=== PATIENT | female | born 1995 | race African-American/Black ===

== ENCOUNTER 2017-02-10 11:01 | Emergency (ER) | payer OTHER ==
[~2017-02-10] VITALS: Ht 165.1 cm; Wt 70.9 kg
[2017-02-10 11:02] VITALS: BP 134/65
[2017-02-10 12:16] LABS: BASO # 0.1 10^3/uL (0.0-0.2); BASO % 0.5 % (0.0-1.0); EOS # 0.1 10^3/uL (0.0-0.50); EOS % 1.4 % (0.0-3.0); IMMATURE GRANULOCYTE % 0.3 % (0-0); LYMPH # 1.9 10^3/uL (1.5-6.5); LYMPH % 19.5 % (24.0-44.0); MEAN CORPUSCULAR HEMOGLOBIN 27.5 pg (27.0-33.0); MEAN CORPUSCULAR HGB CONC 31.2 g/dl (32.0-36.5); MONO # 0.6 10^3/uL (0.0-0.8); MONO % 6.1 % (0.0-5.0); NEUTROPHILS # 7.1 10^3/uL (1.8-7.7); NEUTROPHILS % 72.2 % (36.0-66.0); PLATELET COUNT, AUTOMATED 316 10^3/uL (150-450); WHITE BLOOD COUNT 9.9 10^3/uL (4.0-10.0)
[2017-02-10 12:23] LABS: CONTROL LINE UCG INT CTR LINE PRESENT
--- NOTE | 2017-02-10 12:34 | REP ---
Abdominal right upper quadrant ultrasound: There is a negative Rodriguez's sign to transducer pressure. The gallbladder is contracted at the time of the scan. No definite cholelithiasis is identified. There is no gallbladder wall thickening or pericholecystic fluid. There is no intrahepatic or extrahepatic biliary duct dilatation, the common duct measures 4.9 mm in diameter. The hepatic parenchyma is homogeneous and unremarkable. The pancreas is obscured by bowel gas. There is no right renal hydronephrosis, calculus, mass or cyst. The right kidney is normal size measuring 11.8 cm in craniocaudad length. Impression: The gallbladder is contracted. No definite evidence of cholelithiasis or biliary duct dilatation. No gallbladder wall thickening or pericholecystic fluid to suggest acute cholecystitis. The pancreas is obscured by bowel gas. Signed by Goldy Patterson MD 02/10/2017 12:26 P
[2017-02-10 12:41] LABS: ALBUMIN/GLOBULIN RATIO 0.91 (1.00-1.93); ALKALINE PHOSPHATASE 100 U/L (45-117); ALT/SGPT 30 U/L (12-78); AMYLASE 61 U/L (25-115); ANION GAP 6 MEQ/L (8-16); AST/SGOT 21 U/L (15-37); BILIRUBIN,DIRECT < 0.1 MG/DL (0.0-0.2); BILIRUBIN,TOTAL 0.3 MG/DL (0.2-1.0); BLOOD UREA NITROGEN 16 MG/DL (7-18); CALCIUM LEVEL 9.2 MG/DL (8.5-10.1); CARBON DIOXIDE LEVEL 27 MEQ/L (21-32); CHLORIDE LEVEL 108 MEQ/L (98-107); GLUCOSE, FASTING 64 MG/DL (70-105); POTASSIUM SERUM 3.5 MEQ/L (3.5-5.1); SODIUM LEVEL 141 MEQ/L (136-145); TOTAL PROTEIN 8.4 GM/DL (6.4-8.2)
[2017-02-10] MEDS ORDERED: ZOFR4TAB3 PO (12:48)
== END 2017-02-10 13:08 | disposition home or self-care (01) ==
LOC: M ED 11:01
DX: R10.10 Upper abdominal pain, unspecified (principal); R11.2 Nausea with vomiting, unspecified; Z72.0 Tobacco use

== ENCOUNTER 2017-04-13 16:55 | Emergency (ER) | payer OTHER ==
[~2017-04-13] VITALS: Ht 160 cm; Wt 70.5 kg
[~2017-04-13 16:55] MED LIST: ZOFR4TAB3 PO
[2017-04-13] MEDS ORDERED: cefTRIAXone SOD 250 MG VIAL (J0696) IM ONE (19:00)
[2017-04-13] MEDS ORDERED: AZITHROMYCIN 250 MG TAB PO ONE (19:00)
[2017-04-13 20:53] VITALS: BP 124/67
[2017-04-13 21:08] LABS: CONTROL LINE INT CTR LINE PRESENT; HIV SCRN NEGATIVE (NEGATIVE); HIV SCRN1 NEGATIVE (NEGATIVE)
[2017-04-14 10:59] LABS: HEPATITIS B SURFACE ANTIBODY POSITIVE (POSITIVE)
== END 2017-04-13 20:55 | disposition home or self-care (01) ==
LOC: M ED 16:55
DX: Z20.2 Contact with and (suspected) exposure to infections with a predominantly sexual mode of transmission (principal)
CPT/HCPCS: 81025; 86706; 86780; 86803; 87210; 87340; 87491; 87591; 87806; 96372; 99284; J0696

== ENCOUNTER 2017-12-13 11:30 | Emergency (ER) | payer OTHER ==
[2017-12-13 12:58] LABS: BASO % 0.2 % (0.0-1.0); EOS # 0.2 10^3/uL (0.0-0.50); EOS % 1.1 % (0.0-3.0); HEMATOCRIT 39.4 % (36.0-47.0); HEMOGLOBIN 12.7 g/dl (12.0-15.5); IMMATURE GRANULOCYTE % 0.4 % (0-3.0); LYMPH # 1.4 10^3/uL (1.5-6.5); LYMPH % 9.8 % (24.0-44.0); MEAN CORPUSCULAR HEMOGLOBIN 28.7 pg (27.0-33.0); MEAN CORPUSCULAR HGB CONC 32.2 g/dl (32.0-36.5); MEAN CORPUSCULAR VOLUME 88.9 fl (80.0-96.0); MONO # 0.7 10^3/uL (0.0-0.8); MONO % 5.2 % (0.0-5.0); NEUTROPHILS # 11.6 10^3/uL (1.8-7.7); NEUTROPHILS % 83.3 % (36.0-66.0); PLATELET COUNT, AUTOMATED 306 10^3/uL (150-450); RED BLOOD COUNT 4.43 10^6/uL (4.00-5.40); RED CELL DISTRIBUTION WIDTH 12.5 % (11.5-14.5); WHITE BLOOD COUNT 13.9 10^3/uL (4.0-10.0)
[2017-12-13 13:08] LABS: KETONE, URINE AUTO RFX NEGATIVE (NEGATIVE); MUCUS, URINE RFX SMALL (NEGATIVE); NITRITE, URINE AUTO RFX NEGATIVE (NEGATIVE); RBC, URINE AUTO RFX 0 /HPF (0-3); SPECIFIC GRAVITY UR AUTO RFX 1.018 (1.002-1.035); SQUAM EPITHELIAL CELL UR AURFX 3 /HPF (0-6)
[2017-12-13 13:30] LABS: HCG, SERUM QUANTITATIVE 70697 MIU/ML
[2017-12-13 13:52] LABS: LEUKOCYTE ESTERASE UR AUTO RFX 3+ (NEGATIVE); WBC, URINE AUTO RFX TNTC /HPF (0-3)
[2017-12-13] MEDS: NITROFURANTOIN (MACROBID) 100 MG CAP PO (14:32)
[2017-12-13 14:45] LABS: CHLAMYDIA DNA AMPLIFICATION POSITIVE (NEGATIVE); GC DNA AMPLIFICATION NEGATIVE (NEGATIVE)
== END 2017-12-13 14:33 | disposition home or self-care (01) ==
LOC: M ED 11:30
DX: O23.41 Unspecified infection of urinary tract in pregnancy, first trimester (principal); O23.591 Infection of other part of genital tract in pregnancy, first trimester; Z3A.01 Less than 8 weeks gestation of pregnancy; O99.331 Smoking (tobacco) complicating pregnancy, first trimester; F17.210 Nicotine dependence, cigarettes, uncomplicated
CPT/HCPCS: 76801

== ENCOUNTER 2018-01-11 22:39 | Emergency (ER) | payer OTHER ==
[2018-01-12 00:21] LABS: KETONE, URINE AUTO RFX NEGATIVE (NEGATIVE); LEUKOCYTE ESTERASE UR AUTO RFX NEGATIVE (NEGATIVE); MUCUS, URINE RFX SMALL (NEGATIVE); NITRITE, URINE AUTO RFX NEGATIVE (NEGATIVE); RBC, URINE AUTO RFX 2 /HPF (0-3); SPECIFIC GRAVITY UR AUTO RFX 1.008 (1.002-1.035); SQUAM EPITHELIAL CELL UR AURFX 0 /HPF (0-6); WBC, URINE AUTO RFX 2 /HPF (0-3)
== END 2018-01-12 00:47 | disposition home or self-care (01) ==
LOC: M ED 22:39
DX: O26.891 Other specified pregnancy related conditions, first trimester (principal); R10.2 Pelvic and perineal pain
CPT/HCPCS: 76801

== ENCOUNTER 2018-07-27 02:25 | Inpatient (IN) | payer OTHER ==
[2018-07-27] VITALS (29 sets, daily range): BP systolic 103–150; BP diastolic 55–82
[~2018-07-27] VITALS: Ht 157.5 cm; Wt 75.5 kg
[~2018-07-27 02:25] MED LIST changes: +MACR100C43 PO; +METR0.7533 TOP; +RIGHTAB2; +ZOFR4TAB14 PO; -ZOFR4TAB3 PO
[2018-07-27] MEDS ORDERED: LACTATED RINGER'S 1000 ML IV STA (06:15)
--- NOTE | 2018-07-27 06:30 | HPEPDOC ---
Obstetrical History & Physical General Date of Admission Jul 27, 2018 at 06:15 History of Present Illness 22 yo at 39+0 weeks gestation by 6+5 week US on [id number] presents to L&D w ith regular, painful contractions. She denies any leakage of fluid or bleeding. She endorses movement. is uncomplicated other than a gap in care from 28 to 36 weeks. 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 ABDOMEN: Gravid and non-tender to touch. FETUS: Is vertex (VTX) by sterile vaginal examination (SVE) EXTREMITIES: No edema. Vital Signs/I&O Vital Signs Date Time Temp Pulse Resp B/P (MAP) Pulse Ox O2 Delivery O2 Flow Rate FiO2 07/27/18 04:26 82 18 124/65 (84) 07/27/18 02:49 98.0 Laboratory Data [facility] Laboratory Tests 2 07/27/18 06:21: Serology Scanned Report Hepatitis B Testing Pertinent Laboratoy Data Blood Type: O+ RBC Antibody Screen: Negative HIV: Negative Hepatitis B: Negative Hepatitis C: Unknown Rapid Plasma Reagin: Nonreactive Rubella: Immune Varicella: Immune Chlamydia/Gonorrhea: Negative Group B Streptococcus: Negative Quad Screen Test: Unknown Cystic Fibrosis: Unknown Anatomy Ultrasound Placenta Location: Posterior Normal Anatomy: Yes Placenta Previa: No Vaginal Examination Dilation: 4 cm Effacement: 90% Station: -1, 0 Cervical Consistency: Soft Cervical Position: Middle Presentation: Cephalic presentation Position: Vertex (occiput) Assessment Heart Rate (FHR): 120 Variability: Moderate Accelerations: Positive Decelerations: None Tocometer Contractions: Yes Frequency: regular Duration: greater than 60 seconds Strength: palpated as moderate Assessment/Plan Assessment 22 yo at 39+0 weeks presented to L&D in labor. Plan Admit for expectant management of labor. Will augment as clinically indicated. Apply IV fluids. GBS negative. Clear liquid diet. Epidural as desired. Anticipate . Unable to find result of 1hr GTT in chart though report is that she passed screening. DO JESUS Davis CHRISTOPHER J. DO Jul 27, 2018 06:30
[2018-07-27 06:47] LABS: BASO % 0.2 % (0.0-1.0); EOS % 0.2 % (0.0-3.0); HEMATOCRIT 33.8 % (36.0-47.0); HEMOGLOBIN 10.7 g/dl (12.0-15.5); LYMPH # 1.2 10^3/uL (1.5-6.5); LYMPH % 8.2 % (24.0-44.0); MEAN CORPUSCULAR HEMOGLOBIN 26.6 pg (27.0-33.0); MEAN CORPUSCULAR HGB CONC 31.7 g/dl (32.0-36.5); MEAN CORPUSCULAR VOLUME 83.9 fl (80.0-96.0); MONO # 0.7 10^3/uL (0.0-0.8); MONO % 5.1 % (0.0-5.0); NEUTROPHILS # 12.1 10^3/uL (1.8-7.7); NEUTROPHILS % 85.8 % (36.0-66.0); PLATELET COUNT, AUTOMATED 192 10^3/uL (150-450); RED BLOOD COUNT 4.03 10^6/uL (4.00-5.40); WHITE BLOOD COUNT 14.2 10^3/uL (4.0-10.0)
--- NOTE | 2018-07-27 10:23 | IPNPDOC ---
Text Note Date of Service The patient was seen on 07/27/18. NOTE Cat 1 NST Cx /-/ BOW OK for epidural Sessions VS,Sue, I+O VS, Sue I+O Laboratory Tests 07/27/18 06:33 Red Blood Count 4.03, Mean Corpuscular Volume 83.9, Mean Corpuscular Hemoglobin 26.6 L, Mean Corpuscular Hemoglobin Concent 31.7 L, Red Cell Distribution Width 13.5, Neutrophils (%) (Auto) 85.8 H, Lymphocytes (%) (Auto) 8.2 L, Monocytes (%) (Auto) 5.1 H, Eosinophils (%) (Auto) 0.2, Basophils (%) (Auto) 0.2, Neutrophils # (Auto) 12.1 H, Lymphocytes # (Auto) 1.2 L, Monocytes # (Auto) 0.7, Eosinophils # (Auto) 0.0, Basophils # (Auto) 0.0 Vital Signs Date Time Temp Pulse Resp B/P (MAP) Pulse Ox O2 Delivery O2 Flow Rate FiO2 07/27/18 05:55 98.5 67 18 116/66 (83) SESSIONS,TYLER Sanchez MD Jul 27, 2018 10:22
[2018-07-27] MEDS: FENTANYL/ROPIVACAINE/NACL BAG 100 ML EPIDURAL SCH ×2 (10:26→11:34)
[2018-07-27] MEDS ORDERED: FENTANYL 2MCG/ML ROPIVACAINE 0.2% IN 0.9% NACL 100ML IVBAG As Ordered ONE (10:32)
[2018-07-27] MEDS ORDERED: ONDANSETRON 4MG/2ML VIAL (J2405) IV PRN (12:15)
[2018-07-27] MEDS ORDERED: ePHEDrine SULFATE 25 MG/5 ML(5MG/ML) SYRINGE IV PRN (12:15)
[2018-07-27] MEDS ORDERED: REFRIGERATOR IV KEYS XX PRN (12:15)
[2018-07-27] MEDS ORDERED: EPIDURAL/PCA KEYS XX PRN (12:15)
[2018-07-27] MEDS ORDERED: NALOXONE INJ 0.4 MG/1 ML VIAL (J2310) IV PRN (12:15)
[2018-07-27] MEDS ORDERED: EPIDURAL COMMENT XX SCH (12:15)
[2018-07-27] MEDS ORDERED: diphenhydrAMINE INJ 50MG/ML VIAL (J1200) IV PRN (12:15)
[2018-07-27] MEDS ORDERED: LACTATED RINGER'S 1000 ML IV PRN (12:15)
[2018-07-27] MEDS ORDERED: LR 1,000 ML IV ONE (12:30)
--- NOTE | 2018-07-27 13:01 | IPNPDOC ---
Text Note Date of Service The patient was seen on 07/27/18. NOTE NST Cat 1 Feeling well s/p epidural Cx 6/100/0/AROM with clr blood tinged fluid Recheck in 2-3 hrs, sooner prn Sessions VS,Sue, I+O VSSue I+O Laboratory Tests 07/27/18 06:33 Red Blood Count 4.03, Mean Corpuscular Volume 83.9, Mean Corpuscular Hemoglobin 26.6 L, Mean Corpuscular Hemoglobin Concent 31.7 L, Red Cell Distribution Width 13.5, Neutrophils (%) (Auto) 85.8 H, Lymphocytes (%) (Auto) 8.2 L, Monocytes (%) (Auto) 5.1 H, Eosinophils (%) (Auto) 0.2, Basophils (%) (Auto) 0.2, Neutrophils # (Auto) 12.1 H, Lymphocytes # (Auto) 1.2 L, Monocytes # (Auto) 0.7, Eosinophils # (Auto) 0.0, Basophils # (Auto) 0.0 Vital Signs Date Time Temp Pulse Resp B/P (MAP) Pulse Ox O2 Delivery O2 Flow Rate FiO2 07/27/18 11:13 97.8 07/27/18 10:25 69 18 115/60 (78) SESSIONS,TYLER Sanchez MD Jul 27, 2018 13:01
[2018-07-27] MEDS: LR 1,000 ML IV SCH ×2 (13:04→14:15)
--- NOTE | 2018-07-27 15:54 | IPNPDOC ---
Text Note Date of Service The patient was seen on 07/27/18. NOTE FHT Cat 1 Cx 8/100/0 Doing well Recheck in 2 hrs, sooner prn Sessions VS,Sue, I+O VSSue I+O Laboratory Tests 07/27/18 06:33 Red Blood Count 4.03, Mean Corpuscular Volume 83.9, Mean Corpuscular Hemoglobin 26.6 L, Mean Corpuscular Hemoglobin Concent 31.7 L, Red Cell Distribution Width 13.5, Neutrophils (%) (Auto) 85.8 H, Lymphocytes (%) (Auto) 8.2 L, Monocytes (%) (Auto) 5.1 H, Eosinophils (%) (Auto) 0.2, Basophils (%) (Auto) 0.2, Neutrophils # (Auto) 12.1 H, Lymphocytes # (Auto) 1.2 L, Monocytes # (Auto) 0.7, Eosinophils # (Auto) 0.0, Basophils # (Auto) 0.0 Vital Signs Date Time Temp Pulse Resp B/P (MAP) Pulse Ox O2 Delivery O2 Flow Rate FiO2 07/27/18 14:31 94 16 150/71 (97) 07/27/18 11:13 97.8 SESSIONS,TYLER Sanchez MD Jul 27, 2018 15:54
[2018-07-27] MEDS ORDERED: OXYTOCIN 30 UNITS IN 0.9% NaCl 500ML IV BAG (J2590) As Ordered ONE (17:43)
[2018-07-27] MEDS ORDERED: MEASLES,MUMPS,RUBELLA VACCINE INJ (MMR-II) (90707) SC SCH (19:45)
[2018-07-27] MEDS ORDERED: IBUPROFEN 800 MG TAB PO PRN (19:45)
[2018-07-27] MEDS ORDERED: DIBUCAINE 1% OINTMENT 30GM TOP PRN (19:45)
[2018-07-27] MEDS ORDERED: DOCUSATE SODIUM 100 MG CAP PO PRN (19:45)
[2018-07-27] MEDS ORDERED: RHOGAM 300 MCG (1500 IU) INJ (J2790) IM SCH (19:45)
[2018-07-27] MEDS: ACETAMINOPHEN 500 MG TAB PO PRN (19:51)
[2018-07-27] MEDS ORDERED: OXYTOCIN DRIP 30 UNITS in APPROPRIATE DILUENT 1 EA IV SCH (20:00)
--- NOTE | 2018-07-27 20:24 | DNPDOC ---
[facility] Delivery Note Delivery Note DATE OF DELIVERY: [id number] PREDELIVERY DIAGNOSIS: 39 0/7 weeks' gestation and labor. POST DELIVERY DIAGNOSIS: Delivered. PROCEDURE: Spontaneous vaginal delivery SPECIAL TAX AUDITOR: Dr. Mayer ANESTHESIA: epidural ESTIMATED BLOOD LOSS: 300 mL. FINDINGS: 5 pound 14 ounce male , Score 8/9, nuchal cord times 1, loose DELIVERY SUMMARY: Called to room after pushing well after found to be C/C/+2. Great effort. No delay of the vtx, came out RACQUEL, rest'd to ROT, compound post left arm. No delay of either shoulder, to abdomen. Vigorous. Cord C/C by mot her. Cord blood. Placenta intact. Pit going 999, fundus firm. 3 small vag wall lacs repaired with 3-0 vicryl figure of eights. Per and Cx intact. Sonia MAYER,TYLER Sanchez MD Jul 27, 2018 20:24
[2018-07-28 05:42] VITALS: BP 95/52
--- NOTE | 2018-07-28 07:22 | IPNPDOC ---
Text Note Date of Service The patient was seen on 07/28/18. NOTE PPD 1 SUBJECT: Wendi is a 22yo [id number] s/p uncomplicated on 07/27/18, doing well day #1. She has been ambulating without lightheadedness, voiding spontaneously without issue. Tolerating regular diet without n/v. Breast feeding without issue. Reports lochia is minimal. Pain is minimal. She denies f/c/cp/sob. OBJECTIVE: VITAL SIGNS: Within normal limits, afebrile. Alert and oriented times three. Abdomen: Fundus firm at U-2. Soft, NTTP Extremities: no pain with palpation of calves ASSESSMENT: Wendi is a 22yo [id number] s/p uncomplicated on 07/27/18, doing well day #1. Vitals within normal limits, afebrile, hemodynamically stable with no evidence of infection. PLAN: 1. Routine care 2. Tylenol and motrin for pain 3. Encourage breast feeding and ambulation. 4. Vitals q4hr 5. Regular diet 6. likely discharge home tomorrow Dr. Roseann Anton MD VS,Sue, I+O VS, Sue, I+O Vital Signs Date Time Temp Pulse Resp B/P (MAP) Pulse Ox O2 Delivery O2 Flow Rate FiO2 07/28/18 05:42 99.6 74 16 95/52 (66) I&O- Last 24 Hours up to 6 AM 07/28/18 06:00 Intake Total 5304 ml Output Total 2200 ml Balance 3104 ml Roseann Anton MD Jul 28, 2018 07:22
[2018-07-28] MEDS: PRENATAL VITAMINS CHEWABLE TABLET PO SCH (07:33)
[2018-07-28] MEDS: FENTANYL/ROPIVACAINE/NACL BAG 100 ML EPIDURAL SCH (10:31)
[2018-07-28] MEDS: ACETAMINOPHEN 500 MG TAB PO PRN ×2 (10:54→20:13)
[2018-07-28 18:02] VITALS: BP 111/63
[2018-07-29 05:57] VITALS: BP 97/53
--- NOTE | 2018-07-29 07:28 | DS.PDOC ---
Discharge Summary General Date of Admission Jul 27, 2018 at 06:15 Date of Discharge Jul 29, 2018 Discharge Summary HOSPITAL COURSE: Ms. Khan is a 22 yo G1 now P1 who underwent an uncomplicated on 27Jul2018 after being admitted for active labor. Her course has been unremarkable. On her day of discharge she met all appropriate discharge criteria. She was ambulating, voiding, tolerating a regular diet, and her pain was well controlled, and she had minimal lochia. DISCHARGE MEDICATIONS: Please see below. ALLERGIES: Please see below. PHYSICAL EXAMINATION ON DISCHARGE: VITAL SIGNS: Please see below. GENERAL: AAOX3, sitting up in bed, NAD ABDOMINAL EXAMINATION: Fundus firm at U-2. No fundal tenderness. EXTREMITIES: No edema PSYCHIATRIC EXAMINATION: Affect appropriate LABORATORY DATA: Please see below. ACTIVITY: Pelvic rest. DIET: Regular DISCHARGE PLAN: Discharge DISPOSITION: discharge to home on 29Jul2018. DISCHARGE INSTRUCTIONS: 1. Pelvic rest for 6 weeks. ITEMS TO FOLLOWUP ON ON OUTPATIENT: 1. appointment in 6-8 weeks. DISCHARGE CONDITION: Stable. TIME SPENT ON DISCHARGE: Greater than 20 minutes. Reinaldo Waddell DO Vital Signs/I&Os Vital Signs Date Time Temp Pulse Resp B/P (MAP) Pulse Ox O2 Delivery O2 Flow Rate FiO2 07/29/18 05:57 97.4 67 16 97/53 (68) I&O- Last 24 Hours up to 6 AM 07/29/18 06:00 Output Total 650 ml Balance -650 ml Allergies Coded Allergies: No Known Allergies (Unverified , 01/11/18) REINALDO WADDELL DO Jul 29, 2018 07:27
[2018-07-29] MEDS: PRENATAL VITAMINS CHEWABLE TABLET PO SCH (07:53)
[2018-07-29] MEDS ORDERED: NUPE1OIN2 TOP (08:42)
[2018-07-29] MEDS ORDERED: MAPA500T2 PO (08:42)
[2018-07-29] MEDS ORDERED: IBUP-1114 PO (08:42)
[2018-07-29] MEDS ORDERED: PRENTAB9 PO (08:42)
[2018-07-29] MEDS ORDERED: COLA100C5 PO (08:42)
[2018-07-29] MEDS: ACETAMINOPHEN 500 MG TAB PO PRN (13:09)
== END 2018-07-29 14:00 | disposition home or self-care (01) | DRG 807 ==
LOC: M LDO 02:25 → M LDI 06:15 → M OBS 21:23
PROVIDERS: ADMIT Obstetrics & Gynecology; ATTEND Obstetrics & Gynecology
PROC: 10E0XZZ Delivery of Products of Conception, External Approach (ICD-10-PCS; principal; 2018-07-27)
PROC: 10907ZC Drainage of Amniotic Fluid, Therapeutic from Products of Conception, Via Natural or Artificial Opening (ICD-10-PCS; 2018-07-27)
PROC: 0HQ9XZZ Repair Perineum Skin, External Approach (ICD-10-PCS; 2018-07-27)
DX: O69.81X0 Labor and delivery complicated by cord around neck, without compression, not applicable or unspecified (principal); Z37.0 Single live birth; Z3A.39 39 weeks gestation of pregnancy; O70.0 First degree perineal laceration during delivery

== ENCOUNTER 2019-01-01 19:57 | Emergency (ER) | payer OTHER ==
[~2019-01-01] VITALS: Ht 160 cm; Wt 65.6 kg
[~2019-01-01 19:57] MED LIST changes: +COLA100C5 PO; +IBUP-1114 PO; +MAPA500T2 PO; +NUPE1OIN2 TOP; +PRENTAB9 PO
[2019-01-01] MEDS ORDERED: FLON1SPR NARES (21:52)
[2019-01-01 22:40] VITALS: BP 128/64
== END 2019-01-01 22:42 | disposition home or self-care (01) ==
LOC: M ED 19:57
DX: J06.9 Acute upper respiratory infection, unspecified (principal); Z79.899 Other long term (current) drug therapy; F17.210 Nicotine dependence, cigarettes, uncomplicated